=== PATIENT | female | born 2000 | race Two or more races ===

== ENCOUNTER 2023-02-04 16:30 | Emergency (ER) | payer OTHER ==
[~2023-02-04] VITALS: Ht 154.9 cm; Wt 52.6 kg
[2023-02-04] MEDS ORDERED: DICY20TA PO (17:58)
== END 2023-02-05 00:17 | disposition home or self-care (01) ==
LOC: ER 16:30
DX: K52.9 Noninfective gastroenteritis and colitis, unspecified (principal)

== ENCOUNTER 2023-02-24 06:08 | Emergency (ER) | payer OTHER ==
[~2023-02-24] VITALS: Ht 154.9 cm; Wt 52.2 kg
[~2023-02-24 06:08] MED LIST: DICY20TA PO
[2023-02-24] MEDS ORDERED: OMEPRAZOLE40 MG PO (06:15)
== END 2023-02-24 09:34 | disposition home or self-care (01) ==
LOC: ER 06:08
DX: R10.84 Generalized abdominal pain (principal); R11.10 Vomiting, unspecified

== ENCOUNTER 2023-02-28 04:09 | Inpatient (IN) | payer OTHER ==
[~2023-02-28] VITALS: Ht 154.9 cm; Wt 49.9 kg
[~2023-02-28 04:09] MED LIST changes: +OMEPRAZOLE40 MG PO
[2023-03-05] MEDS ORDERED: CARAFATE1 GM PO (10:41)
== END 2023-03-05 11:07 | disposition home or self-care (01) | DRG 392 ==
LOC: ER 04:09 → MEDJ 17:18 → SEC-K 17:18 → MEDJ 17:55
PROVIDERS: ADMIT Internal Medicine; ATTEND Internal Medicine
PROC: BW21YZZ Computerized Tomography (CT Scan) of Abdomen and Pelvis using Other Contrast (ICD-10-PCS; principal; 2023-02-28)
PROC: BW40ZZZ Ultrasonography of Abdomen (ICD-10-PCS; 2023-02-28)
DX: K21.00 Gastro-esophageal reflux disease with esophagitis, without bleeding (principal); K52.9 Noninfective gastroenteritis and colitis, unspecified; E86.0 Dehydration; E80.6 Other disorders of bilirubin metabolism; R74.01 Elevation of levels of liver transaminase levels

== ENCOUNTER → 2023-04-05 | Outpatient (CLI) | payer OTHER ==
[~2023-04-05] MED LIST changes: +CARAFATE1 GM PO
== END | disposition home or self-care (01) ==
LOC: SONOGRAMA 14:27
DX: N64.4 Mastodynia (principal)

== ENCOUNTER 2023-05-23 16:57 | Emergency (ER) | payer OTHER ==
[~2023-05-23] VITALS: Ht 154.9 cm; Wt 47.6 kg
[2023-05-23] MEDS ORDERED: PEPCID AC20 MG (17:33)
[2023-05-23] MEDS ORDERED: DICY20TA PO (17:33)
[2023-05-23] MEDS ORDERED: PROTONIX20 MG PO (17:33)
[2023-05-23 21:12] LABS: HEMATOCRIT 43.5 % (36.0-45.00); HEMOGLOBIN 14.9 g/dL (12.0-15.00); MEAN CELL VOLUME 86.3 fL (80.00-100.00); MEAN CORPUSCULAR HEMOGLOBIN 29.6 pg (27.00-32.0); MEAN CORPUSCULAR HGB CONC 34.3 g/dl (32.0-36.0); PLATELET COUNT 333 K/uL (150-450); RED BLOOD COUNT 5.04 M/uL (4.00-6.00)
[2023-05-23 21:33] LABS: ALBUMIN 3.9 gm/dL (3.4-5.0); BILIRUBIN TOTAL 2.16 mg/dL (0.3-1.2); CALCIUM 9.9 mg/dL (8.5-10.1); CREATININE SERUM 0.83 mg/dL (0.55-1.02); GFR 85.19; GLOBULINA 4.3 G/DL (2.4-3.5); POTASSIUM 4.26 mEq/L (3.5-5.1); TOTAL PROTEIN 8.2 gm/dL (6.4-8.2)
[2023-05-24 01:27] LABS: PH,URINE 5.5 (5.0-8.0); URINE APPEARANCE Clear; URINE BILIRRUBIN Small (NEGATIVE); URINE BLOOD Trace; URINE COLOR Dark Yellow; URINE GLUCOSE Negative (NEGATIVE); URINE LEUKOCYTE Small; URINE NITRATE Negative; URINE PROTEIN Trace (NEGATIVE)
[2023-05-24 01:31] LABS: URINE BACTERIA 559.4 uL (0.0-1933); URINE EPITHELIAL CELLS 38.3 uL (0.0-38.8); URINE RBC 50.8 uL (0.0-20.8); URINE WBC 19.4 uL (0.0-23.2)
[2023-05-24] MEDS ORDERED: PEPCID40 MG PO (08:39)
== END 2023-05-24 08:49 ==
LOC: ER 16:57
PROVIDERS: Emergency Medicine; General Practice
DX: K29.70 Gastritis, unspecified, without bleeding (principal); J06.9 Acute upper respiratory infection, unspecified; Z20.822 Contact with and (suspected) exposure to COVID-19

== ENCOUNTER 2023-07-24 19:46 | Emergency (ER) | payer OTHER ==
[~2023-07-24] VITALS: Ht 154.9 cm; Wt 46.7 kg
[~2023-07-24 19:46] MED LIST changes: +PEPCID AC20 MG; +PEPCID40 MG PO; +PROTONIX20 MG PO
[2023-07-24] MEDS ORDERED: LEVSIN0.125 MG (21:08)
[2023-07-24] MEDS ORDERED: URSODIOL250 MG (21:09)
[2023-07-24 23:57] LABS: HEMOGLOBIN 13.4 g/dL (12.0-15.00); MEAN CORPUSCULAR HEMOGLOBIN 29.4 pg (27.00-32.0); MEAN CORPUSCULAR HGB CONC 34.2 g/dl (32.0-36.0); PLATELET COUNT 253 K/uL (150-450); RED BLOOD COUNT 4.54 M/uL (4.00-6.00); RED CELL DISTRIBUTION WIDTH 12.6 % (11.5-14.5)
[2023-07-25 00:14] LABS: ALBUMIN 3.8 gm/dL (3.4-5.0); BILIRUBIN TOTAL 1.42 mg/dL (0.3-1.2); CALCIUM 9.1 mg/dL (8.5-10.1); CREATININE SERUM 0.73 mg/dL (0.55-1.02); GFR 98.79; GLOBULINA 3.6 G/DL (2.4-3.5); POTASSIUM 3.81 mEq/L (3.5-5.1); TOTAL PROTEIN 7.4 gm/dL (6.4-8.2)
[2023-07-25] MEDS ORDERED: DICY20TA PO (02:41)
[2023-07-25] MEDS ORDERED: LEVSIN/SL0.125 MG SL (02:41)
[2023-07-25] MEDS ORDERED: CARAFATE1 GM/10 ML PO (02:45)
== END 2023-07-25 02:56 | disposition home or self-care (01) ==
LOC: ER 19:47
PROVIDERS: Emergency Medicine
DX: K29.70 Gastritis, unspecified, without bleeding (principal)

== ENCOUNTER → 2025-07-03 | Emergency (ER) | payer OTHER ==
[~2025-07-03] VITALS: Ht 154.9 cm; Wt 50.8 kg
[~2025-07-03] MED LIST changes: +CARAFATE1 GM/10 ML PO; +CEFTRIAXONE SODIUM 1,000 MG VIAL IV ONE; +CEFTRIAXONE SODIUM 1,000 MG VIAL ONE; +FAMOTIDINE/PF 20 MG in 0.9 % SODIUM CHLORIDE 8 ML IV PUSH SCH; +FAMOTIDINE/PF 20 MG/2 ML VIAL ONE; +KETOROLAC TROMETHAMINE 30 MG VIAL IV STA; +KETOROLAC TROMETHAMINE 30 MG VIAL ONE; +LEVSIN/SL0.125 MG SL; +LEVSIN0.125 MG; +METHYLPREDNISOLONE SOD SUCC 40 MG VIAL IV SCH; +METHYLPREDNISOLONE SOD SUCC 40 MG VIAL ONE; +NEXIUM 24HR20 M1 PO; +ONDANSETRON HCL 2 MG/ML VIAL IV ONE; +ONDANSETRON HCL 2 MG/ML VIAL ONE; +URSODIOL250 MG
[2025-07-03 21:03] LABS: BASO % 0.2 % (0.1-1.2); EOS # 0.04 (0.04-0.54); EOS % 0.7 % (0.7-7.0); LYMPH # 0.65 (1.18-3.74); LYMPH % 11.8 % (19.3-53.1); MEAN PLATELET VOLUME 10.60 fl (9.4-12.4); MONO # 0.61 (0.24-0.82); MONO % 11.1 % (4.7-12.5); NEUT # 4.19 (1.56-6.13); NEUT % 75.8 % (34.0-71.1); RED CELL DISTRIBUTION WIDTH 13.8 % (11.6-14.4)
[2025-07-03 21:38] LABS: COVID-19 AG NEGATIVE (NEGATIVE)
[2025-07-03 21:43] LABS: ALT/SGPT 29.0 U/L (12-78); AST/SGOT 22.0 U/L (15-37); BILIRUBIN TOTAL 0.38 mg/dL (0.3-1.2); BUN CREA RATIO 9.0 (7.0-25.0); CREATININE SERUM 0.78 mg/dL (0.55-1.02); GFR 89.99; GLOBULINA 4.2 G/DL (2.4-3.5); GLUCOSE FASTING 111.0 mg/dL (65-100); OSMOLALITY SERUM 276.0 MOSM/KG (275-295)
[2025-07-03 21:53] LABS: URINE APPEARANCE Clear; URINE BILIRRUBIN Negative (NEGATIVE); URINE BLOOD Small; URINE COLOR Yellow; URINE GLUCOSE Negative (NEGATIVE); URINE KETONE Trace (NEGATIVE); URINE LEUKOCYTE Trace; URINE NITRATE Negative; URINE PROTEIN Negative (NEGATIVE); URINE UROBILINOGEN 0.2 E.U./dl
[2025-07-03 21:57] LABS: URINE EPITHELIAL CELLS 25.4 uL (0.0-38.8); URINE RBC 87.4 uL (0.0-20.8); URINE WBC 42.4 uL (0.0-23.2)
[2025-07-03 22:04] LABS: URINE CAST 0.14 uL (0.0-1.40)
== END | disposition home or self-care (01) ==
LOC: ER 17:58
DX: J10.1 Influenza due to other identified influenza virus with other respiratory manifestations (principal); J98.8 Other specified respiratory disorders; Z20.822 Contact with and (suspected) exposure to COVID-19